=== PATIENT | female | born 2000 | race Hispanic/Latino ===

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

== ENCOUNTER 2024-05-25 11:53 | Emergency (ER) | payer SELFPAY ==
[~2024-05-25] VITALS: Ht 154.9 cm; Wt 65.8 kg
[2024-05-25 11:59] VITALS: PULSE 78; RESP 18; TEMP 98.2; O2SAT 98
[2024-05-25] MEDS ORDERED: CLEOCIN HCL300 MG PO (12:14)
== END 2024-05-25 12:15 | disposition home or self-care (01) ==
LOC: ER 12:05
DX: K11.5 Sialolithiasis (principal)
CPT/HCPCS: 99283

== ENCOUNTER 2024-05-27 12:38 | Emergency (ER) | payer SELFPAY ==
[~2024-05-27] VITALS: Ht 154.9 cm; Wt 65.8 kg
[~2024-05-27 12:38] MED LIST: CLEOCIN HCL300 MG PO
[2024-05-27 13:03] VITALS: PULSE 86; RESP 18; TEMP 98.9; O2SAT 100
[2024-05-27] MEDS ORDERED: ONDANSETRON ODT4 MG PO (13:47)
== END 2024-05-27 14:41 | disposition home or self-care (01) ==
LOC: ER 12:57
DX: K08.89 Other specified disorders of teeth and supporting structures (principal); K11.5 Sialolithiasis
CPT/HCPCS: 99283